=== PATIENT | female | born 1995 | race Caucasian/White ===

== ENCOUNTER 2017-04-22 09:07 | Emergency (ER) | payer OTHER ==
[~2017-04-22] VITALS: Ht 160 cm; Wt 58.0 kg
[2017-04-22 09:10] VITALS: TEMP 36.5; Ht 160 cm; Wt 58.0 kg
[2017-04-22] MEDS ORDERED: SODIUM CHLORIDE 0.9% 1000ML 1,000 ML IV STA (09:27)
[2017-04-22] MEDS ORDERED: RANITIDINE HCL 50 MG/100 ML D5W IV STA (09:27)
[2017-04-22] MEDS ORDERED: BCPILLS PO (09:52)
[2017-04-22 10:00] LABS: MANUAL MICROSCOPIC REQUIRED? NO; REVIEW REQ? NO; URINE APPEARANCE CLEAR (CLEAR); URINE BILIRUBIN NEG (NEG); URINE COLOR YELLOW; URINE EPITHELIAL CELL AUTO >30 /lpf (0-5); URINE NITRITE NEG (NEG); URINE SPECIFIC GRAVITY 1.019 (1.000-1.030); UROBILINOGEN NEG (NEG)
[2017-04-22 10:01] LABS: BASO % 0.2 %; BASO ABS # 0.02 K/uL (0-0.2); COMPLETE YES; EOS % 0.3 %; HEMATOCRIT 37.2 % (37-47); IG% 0.3 %; LYMPH % 19.4 %; LYMPH ABS # 1.71 K/uL (1.2-3.4); MEAN CELL VOLUME 80.5 fL (80-100); MEAN CORPUSCULAR HEMOGLOBIN 27.3 pg (25-34); MEAN CORPUSCULAR HGB CONC 33.9 g/dl (32-36); MEAN PLATELET VOLUME 10.1 fL (7.4-10.4); MONO % 4.5 %; NEUT % 75.3 %; PLATELET COUNT 210 K/uL (130-400); RED BLOOD COUNT 4.62 M/uL (4.2-5.4); WHITE BLOOD COUNT 8.82 K/uL (4.8-10.8)
--- NOTE | 2017-04-22 10:13 | EMERGENCY ROOM VISIT NOTE ---
History First contact with patient: 09:14 Chief Complaint: ABDOMINAL PAIN Stated Complaint: ADB/LOWER BACK PAIN Nursing Triage Summary: pt to the ED with epi/mid gastric abd pain since yesterday getting worse over night with gilmar History of Present Illness The patient is a 22 year old female who presents to the Emergency Room with complaints of epigastric pain and nausea that started about 4 PM yesterday. Patient states she had been out drinking the night before and woke up with a hangover yesterday, so she thought her symptoms were initially related to that. However when she tried to eat anything, the pain got severely worse, and got progressively worse through the night last night. She reports history of heartburn in the past and does not take any medications for this nor has she been seen by a medical provider. She states this seems similar to heartburn, but worse than usual and she has never had the abdominal pain before. She has not tried any medications for her pain. She is no history of previous abdominal surgeries. She denies vomiting, diarrhea or constipation, dysuria, urinary frequency, fevers or chills, chest pain, shortness of breath, dizziness or passing out. LMP 2 weeks ago. Review of Systems A complete 10 point review of systems was reviewed with the patient with pertinent positives and negatives as per history of present illness. All else were negative. Current/Historical Medications Scheduled Control Pills ( Control Pills), 1 TAB PO DAILY Ranitidine (Zantac), 150 MG PO BID Allergies Coded Allergies: Amoxicillin (Unverified Allergy, Unknown, ., 04/22/17) Clavulanic Acid (Unverified Allergy, Unknown, ., 04/22/17) Physical Exam Vital Signs Date Time Temp Pulse Resp B/P (MAP) Pulse Ox O2 Delivery O2 Flow Rate FiO2 04/22/17 13:16 80 18 129/72 99 Room Air 04/22/17 11:34 82 18 142/93 99 Room Air 04/22/17 09:10 36.5 87 16 138/86 100 Physical Exam CONSTITUTIONAL: No acute distress. Well appearing and well nourished. Alert and oriented X 4 with normal affect. HEENT: Normocephalic, atraumatic. Pupils equal, round and reactive to light, EOMI. TMs normal. Pharynx normal. Moist membranes. NECK: Supple, full active range of motion without discomfort. RESPIRATORY: Clear to auscultation bilaterally with no wheezing, crackles, rhonchi or stridor. Equal expansion bilaterally. CARDIOVASCULAR: Regular rate and rhythm with no murmurs, rubs or gallops. Normal peripheral perfusion. No edema. GASTROINTESTINAL: Moderately tender in the epigastric, right upper quadrant, and left upper quadrant abdomen. Soft, nondistended. Bowel sounds present in all quadrants. No rebound tenderness, negative Phelps's, negative McBurney's. MUSCULOSKELETAL: Full range of motion of all joints without discomfort. INTEGUMENTARY: No rash or other significant dermatologic conditions noted. NEUROLOGIC: Cranial nerves II-XII grossly intact. No focal neurologic deficits noted. Medical Decision & Procedures ER Provider Diagnostic Interpretation: GALLBLADDER-ABD LIMITED CLINICAL HISTORY: ABDOMINAL PAIN/GI pain TECHNIQUE: Ultrasound COMPARISON STUDY: None FINDINGS: Slightly contracted gallbladder. Small gallbladder polyp. No shadowing gallstones. Common bile duct 6 mm. Liver pancreas and right kidney are unremarkable. IMPRESSION: Slightly contracted gallbladder with a 2 mm polyp. Otherwise normal exam Laboratory Results 04/22/17 09:40 Red Blood Count 4.62, Mean Corpuscular Volume 80.5, Mean Corpuscular Hemoglobin 27.3, Mean Corpuscular Hemoglobin Concent 33.9, Mean Platelet Volume 10.1, Neutrophils (%) (Auto) 75.3, Lymphocytes (%) (Auto) 19.4, Monocytes (%) (Auto) 4.5, Eosinophils (%) (Auto) 0.3, Basophils (%) (Auto) 0.2, Neutrophils # (Auto) 6.63, Lymphocytes # (Auto) 1.71, Monocytes # (Auto) 0.40, Eosinophils # (Auto) 0.03, Basophils # (Auto) 0.02 04/22/17 09:40 Test 04/22/17 09:40 White Blood Count 8.82 K/uL (4.8-10.8) Red Blood Count 4.62 M/uL (4.2-5.4) Hemoglobin 12.6 g/dL (12.0-16.0) Hematocrit 37.2 % (37-47) Mean Corpuscular Volume 80.5 fL (80-100) Mean Corpuscular Hemoglobin 27.3 pg (25-34) Mean Corpuscular Hemoglobin Concent 33.9 g/dl (32-36) Platelet Count 210 K/uL (130-400) Mean Platelet Volume 10.1 fL (7.4-10.4) Neutrophils (%) (Auto) 75.3 % Lymphocytes (%) (Auto) 19.4 % Monocytes (%) (Auto) 4.5 % Eosinophils (%) (Auto) 0.3 % Basophils (%) (Auto) 0.2 % Neutrophils # (Auto) 6.63 K/uL (1.4-6.5) Lymphocytes # (Auto) 1.71 K/uL (1.2-3.4) Monocytes # (Auto) 0.40 K/uL (0.11-0.59) Eosinophils # (Auto) 0.03 K/uL (0-0.5) Basophils # (Auto) 0.02 K/uL (0-0.2) RDW Standard Deviation 40.5 fL (36.4-46.3) RDW Coefficient of Variation 13.7 % (11.5-14.5) Immature Granulocyte % (Auto) 0.3 % Immature Granulocyte # (Auto) 0.03 K/uL (0.00-0.02) Urine Color YELLOW Urine Appearance CLEAR (CLEAR) Urine pH 8.0 (4.5-7.5) Urine Specific [place] 1.019 (1.000-1.030) Urine Protein NEG (NEG) Urine Glucose (UA) NEG (NEG) Urine Ketones NEG (NEG) Urine Occult Blood NEG (NEG) Urine Nitrite NEG (NEG) Urine Bilirubin NEG (NEG) Urine Urobilinogen NEG (NEG) Urine Leukocyte Esterase MODERATE (NEG) Urine WBC (Auto) 5-10 /hpf (0-5) Urine RBC (Auto) 0-4 /hpf (0-4) Urine Hyaline Casts (Auto) 1-5 /lpf (0-5) Urine Epithelial Cells (Auto) >30 /lpf (0-5) Urine Bacteria (Auto) 1+ (NEG) Urine Test NEG (NEG) Anion Gap 6.0 mmol/L (3-11) Est Creatinine Clear Calc Drug Dose 75.1 ml/min Estimated GFR () 95.6 Estimated GFR (Non- 82.5 BUN/Creatinine Ratio 11.1 (10-20) Calcium Level 9.2 mg/dl (8.5-10.1) Total Bilirubin 0.5 mg/dl (0.2-1) Direct Bilirubin 0.1 mg/dl (0-0.2) Aspartate Amino Transf (AST/SGOT) 69 U/L (15-37) Alanine Aminotransferase (ALT/SGPT) 30 U/L (12-78) Alkaline Phosphatase 43 U/L (45-117) Total Protein 7.4 gm/dl (6.4-8.2) Albumin 3.9 gm/dl (3.4-5.0) Lipase 142 U/L (73-393) Medications Administered Medications (Trade) Dose Ordered Sig/Rebekah Route Start Time Stop Time Status Last Admin Dose Admin Sodium Chloride 1,000 ml @ 999 mls/hr Q1H1M STAT IV 04/22/17 09:27 04/22/17 10:27 DC 04/22/17 09:45 999 MLS/HR Ranitidine HCl (zANTac IV) 50 mg NOW STAT IV 04/22/17 09:27 04/22/17 09:30 DC 04/22/17 09:45 50 MG Miscellaneous Medication (Gi Cocktail) 24 ml NOW STAT PO 04/22/17 13:13 04/22/17 13:14 DC 04/22/17 13:13 24 ML Medical Decision CC: Patient presenting with complaint of epigastric pain and nausea Interpretation of Labs: No leukocytosis, no anemia, no significant electrolyte abnormalities, normal renal function, no significant abnormalities of the liver enzymes and normal lipase. Urinalysis shows moderate leuk esterase, small bacteria, small wbc's, and large epithelial cells, favoring contaminant rather than UTI. Urine culture pending. Differential Diagnosis: Includes, but not limited to GERD, gastritis, gastroenteritis, esophageal spasm, cholecystitis, cholelithiasis, pancreatitis, dehydration, electrolyte abnormality, among others. Medication Reconciliation: I attest that I have personally reviewed the patient' s current medication list. Vital signs review: I reviewed the patient's vital signs and interpret them as follows: T: Afebrile; BP: Normotensive; HR: Within normal limits; RR: Within normal limits; Pulse Ox: Within normal limits on room air. Blood pressure screening: The patient was found to have normal blood pressure on screening and does not require follow-up for repeat blood pressure check. Summary: Patient was evaluated at bedside, history of physical exam performed. Patient is alert and in no acute distress. She has moderate epigastric tenderness with palpation of the abdomen, with mild right upper quadrant and left upper quadrant tenderness. The pain does not radiate. No Phelps's or McBurney's point tenderness. Her symptoms seemed consistent with gastric reflux, but I am also concerned for possible gallbladder disease and pancreatitis, given her recent associated heavy drinking. Orders were placed at bedside for labs, urinalysis, IV fluids, IV Zantac, right upper quadrant ultrasound to evaluate for gallbladder disease. Patient discussed with Dr. Mcpherson, who agrees with my assessment and plan. Labs reviewed as above, no significant abnormalities noted. Right upper quadrant ultrasound reviewed, no evidence of acute gallbladder disease. There is an incidental finding of a very small gallbladder polyp. Patient reassessed multiple times throughout ED stay, she reports improved pain after IV Pepcid, and was also given a GI cocktail with good improvement. Patient was updated on all results and plan for discharge. She was notified of the gallbladder polyp. She was instructed to follow up with her PCP. Patient was given a prescription for ranitidine to start taking daily as a treatment for her GERD symptoms. Patient was instructed on return precautions should her symptoms worsen, she verbalized understanding. Patient was discharged home in stable condition and ambulatory. Impression Primary Impression: Reflux gastritis Additional Impression: Polyp of gallbladder Departure Information Dispostion Home / Self-Care Condition GOOD Prescriptions Ranitidine (Zantac) 150 Mg Tab 150 MG PO BID for 14 Days, #28 TAB Prov: Vani Marcelino CRNP 04/22/17 Referrals No Doctor, Assigned (PCP) Patient Instructions ED PUD Vs Gastritis, My [facility] Additional Instructions You have been treated in the Emergency Department your Abdominal Pain and nausea. Laboratory results and imaging studies have ruled out any emergent causes for your abdominal pain which would warrant admission or surgery. You have been prescribed Zantac to be taken twice a day. This is to help treat your reflux. You may also take Tums as needed for immediate treatment of indigestion. Both of these medications are available [id number]. Avoid NSAIDs such as aspirin, Advil or Aleve, as these may irritate your symptoms. You should also avoid alcohol, as this may make her symptoms worse. Drink plenty of water and stay well hydrated. Your abdominal ultrasound showed an incidental finding of a small polyp in her gallbladder. This should be followed up with your primary care provider. As with any trip to the Emergency Department, you should follow-up with your Primary Care Provider in the next few days from today's visit. Return to the emergency department if your symptoms persist despite treatment plan outlined above or if the following symptoms occur: Severe worsening pain, shortness of breath, fevers/chills, worsening nausea/vomiting, vomiting up blood , or any other concerns. Problem Qualifiers
[2017-04-22 10:17] LABS: BUN/CREATININE RATIO 11.1 (10-20); CALCIUM 9.2 mg/dl (8.5-10.1); CREATININE 0.98 mg/dl (0.60-1.20); POTASSIUM 3.4 mmol/L (3.5-5.1)
--- NOTE | 2017-04-22 11:37 | DIAGNOSTIC IMAGING REPORT ---
GALLBLADDER-ABD LIMITED CLINICAL HISTORY: ABDOMINAL PAIN/GI pain TECHNIQUE: Ultrasound COMPARISON STUDY: None FINDINGS: Slightly contracted gallbladder. Small gallbladder polyp. No shadowing gallstones. Common bile duct 6 mm. Liver pancreas and right kidney are unremarkable. IMPRESSION: Slightly contracted gallbladder with a 2 mm polyp. Otherwise normal exam The above report was generated using voice recognition software. It may contain grammatical, syntax or spelling errors. Electronically signed by: Johnson Bass M.D. 04/22/2017 11:36 AM Dictated Date/Time: 04/22/2017 11:34 AM
[2017-04-22] MEDS ORDERED: ZNTT/150 PO (12:19)
[2017-04-22] MEDS ORDERED: GI COCKTAIL PO STA (13:13)
[2017-04-22 13:16] VITALS: BP 129/72; PULSE 80; O2SAT 99
[2017-04-22] MEDS ORDERED: LIDOCAINE HCL 2% VISC SOLN 20 ML UDC ONE (13:18)
[2017-04-22] MEDS ORDERED: ALUMINUM/MAGNESIUM SUSP 30 ML UDC ONE (13:18)
== END 2017-04-22 13:23 | disposition home or self-care (01) ==
LOC: C.EDB 09:08 → C.EDA 13:23
DX: K29.60 Other gastritis without bleeding (principal); K82.4 Cholesterolosis of gallbladder

== ENCOUNTER → 2017-05-14 | Outpatient (CLI) | payer OTHER ==
[~2017-05-14] MED LIST: BCPILLS PO
== END | disposition home or self-care (01) ==
LOC: C.PAPS 14:47
PROVIDERS: ATTEND Obstetrics & Gynecology
DX: Z12.4 Encounter for screening for malignant neoplasm of cervix (principal)